=== PATIENT | female | born 1985 | race American Indian/Alaskan Native ===

== ENCOUNTER 2021-07-11 12:48 | Outpatient (CLI) | payer BC ==
--- NOTE | 2021-07-11 16:06 | Mammography Report ---
BILATERAL DIGITAL DIAGNOSTIC MAMMOGRAM WITH CAD CONVENTIONAL, 07/11/2021 RIGHT LIMITED BREAST ULTRASOUND CLINICAL INFORMATION / INDICATION: Patient presents for evaluation of an area of palpable concern amanda ng the inferior right breast. Patient states that this area was larger but has gotten smaller in size . TECHNIQUE: Digital bilateral mammographic imaging was performed. Spot compression views were obtained . Limited ultrasound was performed. This examination was interpreted with the benefit of Computer-Aid ed Detection (CAD) analysis. COMPARISON: Baseline FINDINGS: Breast Density: There are scattered areas of fibroglandular density. MAMMOGRAPHIC FINDINGS: Corresponding with the site of palpable concern in the far posterior lower inn er quadrant of the right breast approximately 11 cm from the nipple, there is a superficial focal asy mmetric density measuring up to approximately 1.5 cm which appears to localize to the skin surface. T argeted ultrasound was performed for further evaluation. Otherwise, no dominant mass, suspicious calc ifications, or architectural distortion in either breast. ULTRASOUND FINDINGS: Targeted ultrasound evaluation was performed of the area of interest. Targeted ultrasound of the area of palpable concern in the right breast 4:00 position located 11 cm from the nipple reveals a hypoechoic lesion just deep to the skin surface measuring up to 1.7 x 1.0 x 1.0 cm. There is surrounding increased vascularity. On cine imaging, a tract is seen extending from the lesio n to the skin surface. This is therefore most suggestive of a benign skin associated lesion such as a sebaceous cyst. IMPRESSION: 1. A hypoechoic lesion just deep to the skin surface accounts for the area of palpable concern in the right breast. This most likely reflects an inflamed sebaceous cyst, though clinical correlation is r ecommended. Also, recommend a follow-up right breast ultrasound in 6 months to ensure stability or re solution. Follow up recommendation: Short term follow up in 6 months. BI-RADS Category 3: PROBABLY BENIGN. Followup in 6 months. A "normal" or negative report should not discourage follow up or biopsy of a clinically significant f inding. A written summary of these findings will be mailed to the patient. The patient will be entered into a mammography reporting system which will generate a reminder letter for the patient's next appointmen t at the appropriate interval. According to the [employer], yearly mammograms are recommended starting at age 40 and continuing as long as a woman is in good health. Breast MRI is recommended for women with an marnie roximately 20-25% or greater lifetime risk of breast cancer, including women with a strong family his tory of breast or ovarian cancer and women who have been treated for Hodgkin's disease. Signer Name: Kaylie Borja MD Signed: 07/11/2021 4:02 PM Workstation Name: [facility] [employer] [facility] [facility] [place]
== END 2021-07-11 12:49 | disposition home or self-care (01) ==
LOC: MAMMO 12:48
PROVIDERS: ATTEND Surgery
DX: N60.01 Solitary cyst of right breast (principal); N64.89 Other specified disorders of breast
CPT/HCPCS: 77066